=== PATIENT | male | born 1945 | race Caucasian/White ===

== ENCOUNTER 2019-05-31 14:31 | Inpatient (IN) | payer OTHER ==
[~2019-05-31] VITALS: Ht 182.9 cm; Wt 117.6 kg
[~2019-05-31 14:31] MED LIST: FISHOIL; VITAMIN D400 UNI1 PO
[2019-05-31 14:37] VITALS: BP 163/69
[2019-05-31 14:53] LABS: HEMATOCRIT 45.7 % (42.0-52.0); HEMOGLOBIN 15.5 gm/dL (14.0-18.0); MCHC 33.9 g/dL (28.0-37.0); MCV 85.6 fL (80.0-100.0); MPV 9.9 fl. (7.2-11.1); NUCLEATED RBCS 0 /100WBC; PLATELET COUNT* 420 thou/uL (150-400); RBC 5.33 mil/uL (4.50-6.00); RDW-CV 14.1 % (10.5-14.5); WBC 21.7 thou/uL (4.0-11.0)
[2019-05-31 15:00] LABS: CALCIUM 9.4 mg/dL (8.5-10.1); CREATININE 1.2 mg/dL (0.6-1.3); POTASSIUM 4.1 mmol/L (3.5-5.1)
[2019-05-31 15:11] LABS: ALBUMIN 3.1 g/dL (3.4-5.0); MAGNESIUM 1.8 mg/dL (1.8-2.4); TOTAL BILIRUBIN 0.4 mg/dL (<0.1-1.0)
[2019-05-31 15:24] LABS: ABSOLUTE LYMPHOCYTES 3.3 thou/uL (0.8-5.3); ABSOLUTE MONOCYTES 0.9 thou/uL (0.0-1.2); ABSOLUTE NEUTROPHILS 17.6 thou/uL (1.6-8.1); PLATELET ESTIMATE ADEQUATE
[2019-05-31 18:00] VITALS: BP 114/55
[2019-05-31 18:32] VITALS: BP 144/65
[2019-05-31 20:00] VITALS: BP 118/50
[2019-06-01] VITALS: BP 116/47
[2019-06-01 04:00] VITALS: BP 133/61
[2019-06-01 08:43] VITALS: BP 121/48
[2019-06-01 08:46] LABS: HEMATOCRIT 38.7 % (42.0-52.0); MCH 29.4 pg (26.0-34.0); MCHC 34.5 g/dL (28.0-37.0); MCV 85.2 fL (80.0-100.0); MPV 8.5 fl. (7.2-11.1); RBC 4.55 mil/uL (4.50-6.00); RDW-CV 13.8 % (10.5-14.5)
[2019-06-01 08:49] LABS: HEMOGLOBIN 13.4 gm/dL (14.0-18.0)
[2019-06-01 09:05] LABS: ALBUMIN 2.5 g/dL (3.4-5.0); CALCIUM 8.7 mg/dL (8.5-10.1); CREATININE 1.1 mg/dL (0.6-1.3); MAGNESIUM 1.7 mg/dL (1.8-2.4); TOTAL BILIRUBIN 0.4 mg/dL (<0.1-1.0); TOTAL PROTEIN 6.3 g/dL (6.4-8.2)
[2019-06-01 11:56] VITALS: BP 121/54
--- NOTE | 2019-06-01 13:36 | EKG ---
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1945 Requested By: Kirsten Adams Order Number: [id number] MD: Jeffrey Balderas Measurements Intervals [place] Rate: 128 P: AR: QRS: -99 QRSD: 137 T: 54 QT: 373 QTc: 545 Interpretive Statements sinus tachycardia RBBB and LAFB Compared to ECG 06/19/2010 19:52:53 Right bundle-branch block now present Sinus rhythm no longer present Electronically Signed On 06-01-2019 13:35:[address] JUSTICE by Jeffrey Balderas [email or web address] <ELECTRONICALLY SIGNED> By: Jeffrey Balderas MD, [facility] 06/01/19 1335 1529 1529 Jeffrey Balderas MD, [facility] /EPI
--- NOTE | 2019-06-01 13:39 | 2DMMODE ---
[place] [address] 2 D/M-MODE ECHOCARDIOGRAM Name: SANTOS PENA Room: [address] IN [facility]#: [id number] Admission: 05/31/19 Attend Phys: Nura Davis, Discharge: Date of : 45 Date of Service: 06/01/19 1338 Report #: [id number] THIS REPORT FOR: //name// APPROVED REPORT Study performed: 06/01/2019 09:27:41 EXAM: Comprehensive 2D, Doppler, and color-flow Echocardiogram Patient Location: In-Patient Room #: 203 Status: routine BSA: 2.34 HR: 87 bpm BP: 121/48 mmHg Rhythm: NSR Other Information Technically limited study due to off axis imaging and inability to position patient. Indications Dyspnea 2D Dimensions IVSd: 10.86 (7-11mm) LVOT Diam: 21.10 (18-24mm) LVDd: 52.76 mm PWd: 9.28 (7-11mm) Ascending Ao: 33.79 (22-36mm) LVDs: 30.52 (25-40mm) Aortic Root: 33.11 mm Pulmonary Valve PV Peak Carlos.: 0.96 m/s PV Peak Gr.: 3.67 mmHg Tricuspid Valve RAP Estimate: 10.00 mmHg TR Peak Gr.: 32.72 mmHg RVSP: 42.00 mmHg PA Pressure: 42.00 mmHg Left Ventricle The left ventricle is normal size. There is normal LV segmental wall motion. There is normal left ventricular wall thickness. Left ventricular systolic function is normal. LVEF is 60-65%. This study is not technically sufficient to allow evaluation of the [place] [address] 2 D/M-MODE ECHOCARDIOGRAM Name: SANTOS PENA Room: [address] IN ..#: [id number] Admission: 05/31/19 Attend Phys: Nura Davis, Discharge: Date of : 45 Date of Service: 06/01/19 1338 Report #: [id number] Right Ventricle The right ventricle is normal size. The right ventricular systolic function is normal. Atria The left atrium size is normal. The right atrium size is normal. Aortic Valve The aortic valve is normal in structure. No aortic regurgitation is present. There is no aortic valvular stenosis. Mitral Valve The mitral valve is normal in structure. There is no mitral valve regurgitation noted. No evidence of mitral valve stenosis. Tricuspid Valve The tricuspid valve is normal in structure. Trace tricuspid regurgitation. The RVSP is 45-50 mmHg. Pulmonic Valve The pulmonary valve is normal in structure. There is no pulmonic valvular regurgitation. Great Vessels The aortic root is normal in size. IVC is dilated. Pericardium There is no pericardial effusion. <Conclusion> The left ventricle is normal size. There is normal left ventricular wall thickness. Left ventricular systolic function is normal. LVEF is 60-65%. Trace tricuspid regurgitation. The RVSP is 45-50 mmHg. IVC is dilated. <ELECTRONICALLY SIGNED> By: Santos Ahumada MD, FACC 06/01/19 1338 1338 1338 Santos Ahumada MD, FACC /INF
--- NOTE | 2019-06-01 13:50 | EKG ---
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
[2019-06-01 16:40] VITALS: BP 141/65
[2019-06-01 20:00] VITALS: BP 169/70
[2019-06-01 23:06] LABS: GLYCOHEMOGLOBIN (HGB A1C) 7.9 % (4.8-5.6)
[2019-06-02] VITALS: BP 131/68
[2019-06-02 04:10] VITALS: BP 163/82
[2019-06-02 05:33] LABS: CALCIUM 8.8 mg/dL (8.5-10.1); CREATININE 1.3 mg/dL (0.6-1.3); MAGNESIUM 1.6 mg/dL (1.8-2.4); POTASSIUM 3.8 mmol/L (3.5-5.1)
[2019-06-02 08:00] VITALS: BP 162/82
[2019-06-02 12:00] VITALS: BP 135/74
[2019-06-02 19:14] VITALS: BP 172/69
[2019-06-02 20:00] VITALS: BP 163/73
[2019-06-03] VITALS: BP 162/76
[2019-06-03 04:00] VITALS: BP 155/78
[2019-06-03 08:00] VITALS: BP 142/72
[2019-06-03 12:11] VITALS: BP 157/68
[2019-06-03 16:23] VITALS: BP 122/68
[2019-06-03 20:00] VITALS: BP 145/65
[2019-06-04] VITALS: BP 154/67
[2019-06-04 05:19] LABS: HEMATOCRIT 38.8 % (42.0-52.0); HEMOGLOBIN 13.3 gm/dL (14.0-18.0); MCH 29.2 pg (26.0-34.0); MCHC 34.3 g/dL (28.0-37.0); MCV 84.9 fL (80.0-100.0); RBC 4.57 mil/uL (4.50-6.00); RDW-CV 13.9 % (10.5-14.5)
[2019-06-04 05:45] LABS: CALCIUM 8.7 mg/dL (8.5-10.1); CREATININE 1.6 mg/dL (0.6-1.3); MAGNESIUM 1.8 mg/dL (1.8-2.4); POTASSIUM 4.1 mmol/L (3.5-5.1)
[2019-06-04 08:00] VITALS: BP 140/67
[2019-06-04 16:02] VITALS: BP 144/75
[2019-06-05] VITALS: BP 151/72
[2019-06-05 08:14] LABS: CALCIUM 8.5 mg/dL (8.5-10.1); CREATININE 1.3 mg/dL (0.6-1.3); MAGNESIUM 1.8 mg/dL (1.8-2.4); POTASSIUM 4.2 mmol/L (3.5-5.1)
[2019-06-05 08:41] VITALS: BP 166/75
[2019-06-05 16:08] VITALS: BP 154/85
[2019-06-05 20:00] VITALS: BP 147/73
[2019-06-05 22:20] LABS: URINE BILIRUBIN NEGATIVE (Negative); URINE BLOOD TRACE (Negative); URINE CLARITY CLEAR; URINE COLOR YELLOW; URINE GLUCOSE-RANDOM NEGATIVE (Negative); URINE KETONES NEGATIVE (Negative); URINE LEUKOCYTES-REFLEX NEGATIVE (Negative); URINE NITRITE-REFLEX NEGATIVE (Negative); URINE PROTEIN NEGATIVE (Negative); URINE SPECIFIC GRAVITY 1.015 (1.005-1.030); URINE UROBILINOGEN 0.2 E.U./dl (0.2-1.0)
[2019-06-06] MEDS ORDERED: CELEXA20 MG PO (07:29)
[2019-06-06] MEDS ORDERED: HYDROCODON-ACE1 EAC7 PO (07:29)
[2019-06-06] MEDS ORDERED: KEFLEX500 M1 PO (07:29)
[2019-06-06] MEDS ORDERED: KLOR-CON M2020 MEQ PO (07:29)
[2019-06-06] MEDS ORDERED: GLUCOPHAGE500 MG PO (07:29)
[2019-06-06] MEDS ORDERED: GABAPENTIN 100100 MG PO (07:29)
[2019-06-06] MEDS ORDERED: LASIX 40 MG TAB40 M1 PO (07:29)
[2019-06-06 08:30] VITALS: BP 188/89
[2019-06-06 16:00] VITALS: BP 163/84
[2019-06-06 20:00] VITALS: BP 163/77
[2019-06-07] MEDS ORDERED: FINASTERIDE5 MG PO (08:20)
[2019-06-07] MEDS ORDERED: FLOMAX0.4 MG PO (08:20)
[2019-06-07 16:00] VITALS: BP 137/61
[2019-06-07 20:00] VITALS: BP 157/62
[2019-06-08 08:30] VITALS: BP 147/64
[2019-06-08 16:00] VITALS: BP 138/75
--- NOTE | 2019-06-20 08:58 | CON ---
[address] [address] CONSULTATION Name: SARAY PENA Room: [address] IN [facility].#: [id number] Admission: 05/31/19 Attend Phys: Nura Davis MD Discharge: 06/08/19 Date of : 45 Report #: [id number] THIS REPORT FOR: //name// CC: [facility] physician/PCP Nura Davis DATE OF SERVICE: 06/08/2019 UROLOGY CONSULTATION REASON FOR CONSULTATION: Urinary retention. HISTORY OF PRESENT ILLNESS: The patient is a 74-year-old male with history of noncompliance, who presented for a fall back on 05/31/2019. In the last couple of days, he was noted to have urinary retention and a Holder catheter was placed for close to 2200 mL of urine. He is newly diagnosed with uncontrolled diabetes. reports at home, he was voiding frequently and also had nocturia. The patient has never seen an urologist and denies any history of prostate issues. The patient does not go to the doctor frequently. The patient denies any hematuria. PAST MEDICAL HISTORY: Includes newly diagnosed uncontrolled diabetes, AFib with RVR, chronic venous stasis with lower extremity wounds and cellulitis, CHF, COPD, obesity, dementia. ALLERGIES: PENICILLIN. MEDICATIONS: Reviewed. Please see inpatient medical record. SOCIAL HISTORY: The patient is a current every day smoker, half pack a day. He denies any alcohol or drug use. reports he has been in care home facilities recently. FAMILY HISTORY: Noncontributory. REVIEW OF SYSTEMS: Twelve-point review of systems is performed. Except as noted above in the HPI, he reports lower extremity wounds and swelling as well as chronic back pain, otherwise 12-point review of systems is negative. PHYSICAL EXAMINATION: VITAL SIGNS: Temperature is 36.7, pulse 97, respirations 18, blood pressure 147/64. He is on room air. GENERAL: He is a well-developed, well-nourished, obese white male who appears chronically ill, lying in bed. HEENT: Normocephalic, [place] [address] CONSULTATION Name: SARAY PENA Room: [address]#: [id number] Admission: 05/31/19 Attend Phys: Nura Davis MD Discharge: 06/08/19 Date of : 45 Report #: [id number] RESPIRATIONS: Unlabored. HEART: Regular. ABDOMEN: Soft, obese, nontender, nondistended. GENITOURINARY: He has penile and scrotal edema and difficult to examine his penis because of the edema, but I am able to expose the meatus. Catheter is in place. Urine is clear in the Holder bag. EXTREMITIES: He has bilateral lower extremity edema. Bilateral legs are wrapped in dressings. LABORATORY DATA: His white count is 15 back on the 12th, hemoglobin 13.3, platelets 308. His creatinine is 1.3 on the . Urinalysis on the 06/05/2019 was negative except for trace blood. No micro exam was done. Imaging yu, he has had no kidney imaging during this admission. ASSESSMENT AND PLAN: Urinary retention (2.5 liters), suspect related to uncontrolled diabetes and he may have a neurogenic bladder at this point given the degree of retention. He had no sensation of feeling that full which is not usually a good sign. Fortunately, he has not had any renal failure and he has no urinary infection. I agree with starting Flomax and Proscar and he can be discharged on those medications. I did warn the patient and his , I think it is probably unlikely he will be able to be completely catheter free from this point on whether it is a CICU or chronic Holder or SP tube. We certainly can attempt a voiding trial in a couple of weeks in the office, but I am not very optimistic about this. The patient is chronically ill, has a history of noncompliance per records. He is going to be going to a care home facility soon and he can be discharged with the catheter. <ELECTRONICALLY SIGNED> By: Liv Valdes MD 06/20/19 0858 1606 [id number] Valdes MD /nt
== END 2019-06-08 17:35 | DRG 853 ==
LOC: M.ERS 14:31 → M.TBA-ER 15:59 → M.2W 15:59 → M.ORTHSURG 06-05 00:46
PROVIDERS: Physician Assistant; ADMIT Internal Medicine
PROC: 0JBQ0ZZ Excision of Right Foot Subcutaneous Tissue and Fascia, Open Approach (ICD-10-PCS; principal; 2019-06-02)
PROC: 0HDRXZZ Extraction of Toe Nail, External Approach (ICD-10-PCS; principal; 2019-06-02)
PROC: 0JBR0ZZ Excision of Left Foot Subcutaneous Tissue and Fascia, Open Approach (ICD-10-PCS; principal; 2019-06-02)
DX: A41.9 Sepsis, unspecified organism (principal); I50.31 Acute diastolic (congestive) heart failure; J44.1 Chronic obstructive pulmonary disease with (acute) exacerbation; L03.116 Cellulitis of left lower limb; L03.115 Cellulitis of right lower limb; I48.20 Chronic atrial fibrillation, unspecified; E11.40 Type 2 diabetes mellitus with diabetic neuropathy, unspecified; E11.65 Type 2 diabetes mellitus with hyperglycemia; F17.210 Nicotine dependence, cigarettes, uncomplicated; R33.8 Other retention of urine; E66.9 Obesity, unspecified; F03.90 Unspecified dementia, unspecified severity, without behavioral disturbance, psychotic disturbance, mood disturbance, and anxiety; L60.3 Nail dystrophy; F32.9 Major depressive disorder, single episode, unspecified; I87.8 Other specified disorders of veins; I89.0 Lymphedema, not elsewhere classified; I27.20 Pulmonary hypertension, unspecified; S31.809A Unspecified open wound of unspecified buttock, initial encounter; X58.XXXA Exposure to other specified factors, initial encounter; Z79.84 Long term (current) use of oral hypoglycemic drugs; Z79.899 Other long term (current) drug therapy; Y93.89 Activity, other specified; Z79.82 Long term (current) use of aspirin; Z68.35 Body mass index [BMI] 35.0-35.9, adult; Z88.0 Allergy status to penicillin; Z79.4 Long term (current) use of insulin; Z79.51 Long term (current) use of inhaled steroids